=== PATIENT | female | born 1990 | race Caucasian/White ===

== ENCOUNTER 2019-10-27 12:10 | Emergency (ER) | payer OTHER, SELFPAY ==
[2019-10-27 12:14] VITALS: BP 125/69; PULSE 95; RESP 20; TEMP 36.8; O2SAT 99
--- NOTE | 2019-10-27 12:15 | ED.GENADULT ---
HPI - General Adult General Chief complaint: Skin/Abscess/Foreign Body Stated complaint: sore on left hand Time Seen by Provider: 10/27/19 12:15 Source: patient Mode of arrival: ambulatory Limitations: no limitations History of Present Illness HPI narrative: 29-year-old female patient presents to the [facility] with complaints of bumps to her left hand for the past 2 days. Patient states that she popped the area yesterday with a needle and states that she had some pus that came out of it. Patient states that there is 2 small spots again today, slight pain and a little bit of redness. Denies any fevers, body aches or chills. Denies any pain with movement of the hand or fingers. Related Data Allergies Allergy/AdvReac Type Severity Reaction Status Date / Time No Known Allergies Allergy Verified 10/27/19 12:33 Review of Systems Review of Systems: Narrative: CONSTITUTIONAL: Denies fever, chills, or sweats. EYES: Denies visual changes, redness, or discharge. ENT: Denies rhinorrhea, congestion, sore throat, or otalgia. CARDIOVASCULAR: Denies chest pain, palpitations, or edema. RESPIRATORY: Denies cough or dyspnea. GASTROINTESTINAL: Denies abdominal pain, nausea, vomiting, or diarrhea. GENITOURINARY: Denies dysuria or hematuria. SKIN: Denies rash or itching. Positive wound to left hand near the thumb x2-day MUSCULOSKELETAL: Denies back pain, joint pain, or myalgia. NEUROLOGIC: Denies headache, numbness, or weakness. PSYCHIATRIC: Denies anxiety or depression. PMFSH Comments At the time of my signature I agree with nursing past medical history, surgical, social, and family history. There is no relevant family history pertinent to the presenting complaint. Exam Narrative: Exam Narrative: GENERAL: Well-appearing, well-nourished, and in no acute distress. HEAD: Normocephalic, atraumatic. EYES: PERRLA and EOMI. ENT: Nares clear, no rhinorrhea or epistaxis. Mucous membranes moist. NECK: Supple. No lymphadenopathy CHEST: Clear to auscultation. No respiratory distress. HEART: Regular rate and rhythm. No murmur heard. Normal peripheral pulses. ABDOMEN: Soft, nontender, nondistended, normal active bowel sounds. EXTREMITIES: Normal range of motion. No edema. SKIN: Warm, dry, no rash. Patient has 2 small raised papules noted at the base of the left thumb on the palm side. There is slight surrounding erythema, no warmth, no active discharge at this time. Slight tenderness on palpation. NEURO: No focal deficits. Alert and oriented x3. Course Vital Signs Vital signs: Vital Signs Temperature 36.8 C 10/27/19 12:14 Pulse Rate 95 10/27/19 12:14 Respiratory Rate 20 10/27/19 12:14 Blood Pressure 125/69 10/27/19 12:14 Pulse Oximetry 99 10/27/19 12:14 Temperature 36.8 C 10/27/19 12:14 Pulse Rate 95 10/27/19 12:14 Respiratory Rate 20 10/27/19 12:14 Blood Pressure 125/69 10/27/19 12:14 Pulse Oximetry 99 10/27/19 12:14 Vital signs reviewed. Medical Decision Making Differential Diagnosis Differential Diagnosis: Differential diagnosis: Abscess, cellulitis, hidradenitis, laceration, puncture wound. Discussed with patient this looks like possibly a little abscess in reviewing a cyst to the area. Discussed with patient that I would not advise her to open up the wound on her own at all however she can use some warm compresses and I will also give her an ointment to help decrease risk of infection. Discussed with patient she can just wash the area with regular soap and water and that should go away on its own. Discussed with her the signs and symptoms to look for if it continues to worsen and if it does continue to worsen she will need to see her primary care provider for possible oral antibiotics. Patient verbalized understanding denies any other questions or concerns at this time. Vital Signs Vital Signs: Vital Signs Temperature 36.8 C 10/27/19 12:14 Pulse Rate 95 10/27/19 12:14 Respiratory Rate 20 09
== END 2019-10-27 12:38 | disposition home or self-care (01) ==
PROVIDERS: Emergency Provider Nurse Practitioner Family
DX: L72.9 Follicular cyst of the skin and subcutaneous tissue, unspecified (principal); J45.909 Unspecified asthma, uncomplicated; N80.9 Endometriosis, unspecified
CPT/HCPCS: 99213; G0463